=== PATIENT | male | born 1985 | race Caucasian/White ===

== ENCOUNTER 2022-06-13 19:10 | Outpatient (CLI) | payer OTHER, BC, SELFPAY | END 2022-06-13 19:11 | disposition home or self-care (01) | PROVIDERS: PCP Family Medicine; Visit Provider Emergency Medicine Emergency Medical Services | DX: S69.91XA Unspecified injury of right wrist, hand and finger(s), initial encounter (principal); V53.5XXA Driver of pick-up truck or van injured in collision with car, pick-up truck or van in traffic accident, initial encounter; Y92.410 Unspecified street and highway as the place of occurrence of the external cause | CPT/HCPCS: A0425; A0429 ==

== ENCOUNTER 2022-06-13 19:45 | Emergency (ER) | payer OTHER, BC, SELFPAY ==
[2022-06-13 20:10] VITALS: BP 135/87; PULSE 87; RESP 16; TEMP 36.6; O2SAT 98
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
--- NOTE | 2022-06-13 21:05 | ED.NURSE ---
see paper record
== END 2022-06-13 21:06 | disposition home or self-care (01) ==
PROVIDERS: Emergency Provider Emergency Medicine Emergency Medical Services; PCP Family Medicine
DX: M25.531 Pain in right wrist (principal); V53.5XXA Driver of pick-up truck or van injured in collision with car, pick-up truck or van in traffic accident, initial encounter
CPT/HCPCS: 99283; 99285; 99291; G0390